=== PATIENT | female | born 1965 | race Caucasian/White ===

== ENCOUNTER → 2017-10-07 | Outpatient (CLI) | payer BC ==
--- NOTE | 2017-10-07 11:04 | USB ---
Reason for exam: clinical finding. History: Took hormonal contraceptives for 7 years beginning at age 19. Physical Findings: Nurse did not find any significant physical abnormalities on exam. US Breast LT Left breast ultrasound includes all four quadrants, the retroareolar region and axilla. Finding demonstrates a 0.3 x 0.3 x 0.4cm cystic lesion at 10 o'clock and a 0.4 x 0.4 x 0.4cm cystic lesion at 1 o'clock. Overall fibroglandular changes. These results were verbally communicated with the patient and result sheet given to the patient on 10/07/17. ASSESSMENT: Benign, BI-RAD 2 RECOMMENDATION: Routine screening mammogram of both breasts. Back on schedule. Manage patient on a clinical basis. (left breast pain).
== END | disposition home or self-care (01) ==
LOC: RADUSWWP 09:18
PROVIDERS: ATTEND Obstetrics & Gynecology
DX: N60.09 Solitary cyst of unspecified breast (principal); N64.4 Mastodynia

== ENCOUNTER → 2018-03-17 | Outpatient (CLI) | payer BC ==
[2018-03-17 10:37] LABS: Basophils % (A) 1 %; Eosinophils # (A) 0.1 k/uL (0-0.7); Eosinophils % (A) 2 %; HCT 41.1 % (34.0-46.0); HGB 13.4 gm/dL (11.4-16.0); Lymphocytes # (A) 1.4 k/uL (1.0-4.8); Lymphocytes % (A) 28 %; MCH 28.6 pg (25.0-35.0); MCHC 32.7 g/dL (31.0-37.0); MCV 87.6 fL (80.0-100.0); Mean Platelet Volume 8.1; Monocytes # (A) 0.4 k/uL (0-1.0); Monocytes % (A) 8 %; Neutrophils # (A) 2.8 k/uL (1.3-7.7); Neutrophils % (A) 58 %; Platelet Count 180 k/uL (150-450); RDW 13.4 % (11.5-15.5); WBC 4.9 k/uL (3.8-10.6)
== END | disposition home or self-care (01) ==
LOC: LABPAT 09:48
PROVIDERS: ATTEND Obstetrics & Gynecology
DX: Z01.812 Encounter for preprocedural laboratory examination (principal); N84.0 Polyp of corpus uteri; N93.8 Other specified abnormal uterine and vaginal bleeding
CPT/HCPCS: 36415; 85025

== ENCOUNTER 2018-03-29 07:38 | Day surgery (SDC) | payer BC ==
[2018-03-24 10:44] VITALS: BMI 23.8
[~2018-03-29 07:38] MED LIST: DEXAMETHASONE SOD PHOSPHATE 10 MG/ML 1 ML VIAL IV ONE; LACTATED RINGERS 1,000 ML IV SCH; LIDOCAINE 1% 20 ML VIAL (10MG/ML) FOR IV START INTRADERMA PRN; MORPHINE SULFATE 2 MG/ML SYRINGE IV PRN; ONDANSETRON 4 MG/2 ML VIAL IVP ONE; Pre Op ABX Message 1 EACH MISC MISCELLANE ONE; SCOPOLAMINE 1.5MG/72HR PATCH TRANSDERM ONE
[2018-03-29] MEDS ORDERED: PROPOFOL 10 MG/ML 20 ML VIAL IV ONE (10:28)
[2018-03-29] MEDS ORDERED: fentaNYL (PF) 50 MCG/ML 2 ML AMP ONE (10:28)
[2018-03-29] MEDS ORDERED: LIDOCAINE 1% INJ 10MG/ML (20 ML MDV) ONE (10:28)
[2018-03-29] MEDS ORDERED: MIDAZOLAM 2 MG/2 ML VIAL ONE (10:28)
[2018-03-29] MEDS ORDERED: LIDOCAINE 1% INJ 10MG/ML (20 ML MDV) SQ ONE (10:47)
--- NOTE | 2018-03-29 10:58 | P.OP ---
Date of Procedure: 03/29/18 Preoperative Diagnosis: Dysfunctional uterine bleeding Endometrial polyp Postoperative Diagnosis: Same Procedure(s) Performed: Diagnostic hysteroscopy, D&C, NovaSure endometrial ablation Anesthesia: MAC Surgeon: Rita Matias Estimated Blood Loss (ml): 10 IV fluids (ml): 500 Urine output (ml): 100 Pathology: other (Endometrial curetting) Condition: stable Disposition: PACU Indications for Procedure: Dysfunctional uterine bleeding and findings of polyp on ultrasound Operative Findings: Fluffy endometrium with polypoid tissue Description of Procedure: After the patient was met in the preoperative holding area and all questions were answered, she was taken to the operating room where anesthetic was administered without incident. She was positioned, prepped and draped in the dorsal lithotomy position. Bladder was drained for approximately 100 mL of clear urine. Sinusitis speculum was placed in the vagina and the cervix was grasped anteriorly with a single-tooth tenaculum. Paracervical block with lidocaine plus epinephrine was placed. Uterus was sounded to 9 cm. Cervix was sequentially dilated to allow for passage of the diagnostic hysteroscope. Hysteroscope was introduced and fluffy redundant endometrium with polypoid tissue was noted. Hysteroscope was removed and the cervix was further dilated to allow for passage of the sharp banjo curet. The uterine cavity is circumferentially curettaged with tissue consistent with polyps removed. The NovaSure ablation device was then introduced. Cavity length was 5 cm and width was 3 cm. Cavity assessment was passed. The device was enabled for a treatment cycle of 101 seconds at a power of 83 W. Following cessation of the treatment cycle the device was removed. Hysteroscope was reintroduced and complete desiccation of the endometrium was noted. Hysteroscope was removed. Cervix was inspected no active bleeding was noted. Instruments removed from the vagina and the patient was awoken from anesthetic without incident. All counts reported to me as correct by the operating room staff. She was transported to recovery area in stable condition.
[2018-03-29 11:19] VITALS: TEMP 97.7
[2018-03-29 12:02] VITALS: RESP 16
[2018-03-29 12:33] VITALS: BP 113/73; PULSE 62
== END 2018-03-29 12:51 | disposition home or self-care (01) ==
LOC: OR 07:38
PROVIDERS: ATTEND Obstetrics & Gynecology
DX: N93.8 Other specified abnormal uterine and vaginal bleeding (principal); N84.0 Polyp of corpus uteri; Z88.8 Allergy status to other drugs, medicaments and biological substances
CPT/HCPCS: 81025; 88305; 58563; J2250; J1100; J2405; J2001; J3010; J2704

== ENCOUNTER → 2018-06-28 | Outpatient (CLI) | payer BC ==
--- NOTE | 2018-07-01 15:05 | US ---
EXAMINATION TYPE: US extremity nonvasc complete LT hip DATE OF EXAM: 07/01/2018 COMPARISON: None available CLINICAL HISTORY: 53-year-old female with left hip and groin pain, M70.62 bursitis left hip. TECHNIQUE: Multiple sonographic images of the left hip were obtained. FINDINGS: This anterior femoral head neck junction osseous excrescence and a small nonspecific left hip joint e ffusion demonstrated. Scanning of the left inguinal region shows a couple nonenlarged lymph nodes. With Valsalva, no femora l canal hernia at the site of patient indicated pain is identified. Scanning along the posterolateral aspect of the greater trochanter, there is trace thickening/fluid i nvolving the trochanteric bursa. Additional focal area of fluid signal within the substance of the lateral gluteus medius tendon. IMPRESSION: 1. Trace thickening/fluid within the left trochanteric bursa could reflect mild bursitis. 2. Findings suggest a small intrasubstance tear involving the lateral gluteus medius tendon. Consider the utility of MRI to corroborate these findings. 3. If the patient's outside radiographs are made available for review, an addendum can be issued as t here is suggestion of a bony excrescence at the femoral head neck junction which may indicate a CAM d eformity relating to femoral acetabular impingement syndrome. Correlate with physical exam testing. 4. Small nonspecific left hip joint effusion.
== END | disposition home or self-care (01) ==
LOC: RADUSWWP 08:00
PROVIDERS: ATTEND Family Medicine
DX: M25.452 Effusion, left hip (principal)

== ENCOUNTER → 2018-07-01 | Outpatient (CLI) | payer BC | LOC: RADUSWWP 07:51 | PROVIDERS: ATTEND Family Medicine | DX: Z53.9 Procedure and treatment not carried out, unspecified reason (principal) ==